=== PATIENT | male | born 1935 | race Caucasian/White ===

== ENCOUNTER 2020-01-30 13:55 | IRF | payer MEDICARE, OTHER, SELFPAY ==
--- NOTE | ~2020-01-30 | US_ITS ---
EXAMINATION: US venous doppler LE RT DATE: 02/09/2020 16:40 INDICATION: Right lower limb swelling TECHNIQUE: Bui scale images without and with compression and Doppler images of the right lower extre mity veins were obtained. COMPARISON: None FINDINGS: The right common femoral vein, profunda femoral vein, femoral vein, popliteal vein, peronea l trunk, posterior tibial veins, and greater saphenous vein are patent. IMPRESSION: 1. Patent right lower extremity veins. No evidence of deep venous thrombosis. Reviewed, dictated and finalized at location B.
[2020-01-30 13:48] VITALS: BP 122/40; PULSE 67; RESP 18; TEMP 36.6; O2SAT 98; BMI 23.9
--- NOTE | 2020-01-30 14:27 | ADMGEN ---
This patient, Brian Cook, was admitted to [facility] Room 226-01. Patient/family oriented to hospital policies and general routines including ID bracelet, bed and alarms, visiting hours, pain management, procedures, bathroom and other care routines, personal items, smoking policy, room service/diet, and visiting hours. Valuables list has been completed. Information on how to activate the Rapid Response Team has been discussed. Patient/Family are encouraged to report perceived risks to care and to ask questions if they do not understand what they are told or what they should do.
[2020-01-30] MEDS: DOCUSATE SODIUM 100 MG CAPSULE PO (20:12)
[2020-01-30 20:55] VITALS: TEMP 38.3
[2020-01-30] MEDS: ACETAMINOPHEN 325 MG TABLET 650 MG PO (20:55)
[2020-01-30 20:59] VITALS: TEMP 38.3
[2020-01-30 22:00] VITALS: BP 132/52; PULSE 80; RESP 18; TEMP 37.6; O2SAT 97
[2020-01-30 22:10] VITALS: TEMP 37.6
[2020-01-31 05:02] VITALS: TEMP 36.6
[2020-01-31 05:43] LABS: Basophils Percent Auto 0.5 % (0.2-1.2); Eosinophils Absolute Auto 0.3 K/mm3 (0-0.3); Hemoglobin 8.5 g/dL (14.0-18.0); Immature Granulocyte Absolute 0.05 K/mm3 (0.00-0.031); Immature Granulocyte Percent A 0.8 % (0-0.5); Lymphocytes Absolute Auto 0.72 K/mm3 (0.9-3.2); Lymphocytes Percent Auto 11.7 % (18.3-44.2); Mean Corpuscular HGB Conc 32.7 g/dl (32-36); Mean Corpuscular Hemoglobin 29.8 pg (26-34); Mean Corpuscular Volume 91.2 fl (80-100); Mean Platelet Volume 9.3 fl (7.4-10.4); Monocytes Absolute Auto 0.6 K/mm3 (0.1-0.6); Monocytes Percent Auto 9.5 % (2.6-8.5); Neutrophils Absolute Auto 4.5 K/mm3 (1.3-6.7); Neutrophils Percent Auto 73.5 % (45.5-73.1); Platelet Count Result 194 k/mm3 (150-375); Red Blood Count 2.85 M/mm3 (4.6-6.20); Red Cell Distribution Width 13.6 % (11.5-14.5); White Blood Count 6.2 K/mm3 (4.5-10.0)
[2020-01-31 05:55] LABS: Blood Urea Nitrogen 21 mg/dL (9-20); Calcium 7.9 mg/dL (8.4-10.2); Carbon Dioxide 30 mmol/L (22-30); Chloride 101 mmol/L (98-107); Estimated CRCL calculation 47 ml/min; Estimated Glomerular Filt Rate > 60; Glucose 103 mg/dL (75-110); Sodium 134 mmol/L (137-145)
[2020-01-31 06:00] VITALS: BP 114/51; PULSE 61; RESP 20; TEMP 36.6; O2SAT 97
[2020-01-31 08:00] VITALS: PULSE 61; RESP 20; O2SAT 97
[2020-01-31] MEDS: DOCUSATE SODIUM 100 MG CAPSULE PO ×2 (08:58→20:13)
[2020-01-31 14:00] VITALS: BP 129/58; PULSE 63; RESP 22; TEMP 36.8; O2SAT 100
--- NOTE | 2020-01-31 15:48 | REHAB_ITS ---
DATE OF SERVICE: 01/31/2020 The patient has been admitted to [facility] floor on 01/30/2020, and was seen by me on 01/31/2020 at 12 noon [id number]. PATIENT'S PRIMARY REHAB IMPAIRMENT CATEGORY: Orthopedic that is lower extremity fracture and the etiological diagnosis is right mild, moderately displaced basicervical femoral fracture. ADMISSION ACUTE COMORBID CONDITIONS: 1. Hypercholesterolemia. 2. Diverticulitis. 3. Prostatic cancer. HISTORY OF PRESENT ILLNESS: This 84-year-old right-handed male with no specific significant past medical history, except as mentioned above, presented to [facility] on 01/26/2020, subsequent to a fall in his daughter's basement. He reported significant right-sided hip pain with an unnatural rotation. In the emergency room, his blood pressure was 175/74. Radiological investigation documented angulated right femur neck fracture. Orthopedics were consulted and he underwent right hemiarthroplasty on 01/27/2020, with Dr. Lopez. He was weightbearing at touch toe to the right lower extremity along with hip precautions. Postoperatively, he was experiencing acute pain, acute blood-loss anemia, and impaired mobility to perform functional transfers, ADLs, and ambulation. His pain was being controlled with oral analgesics. He was hemodynamically stable and was working with Physical and Occupational Therapy and was finally discharged to rehab on Lovenox for DVT prophylaxis. As per the information available, he has not traveled outside the [place], had no contact with someone who was ill or had traveled outside the [place] in the last 21 days. The patient has traveled to an area of the that is experiencing known transmission of coronavirus. He was returned to go to [place], [place] from [place], was tested for COVID-19 and the tests were negative. He does not have fever. He is not experiencing any lower respiratory illness symptoms. Therapy was initiated at the acute care facility and he was transferred to us from [facility] on 01/30/2020. The patient has had major surgery in the last 100 days prior to admission, has had a fall in the past year and has had a fall with injury in the last year as well. PAST MEDICAL HISTORY: Hypercholesterolemia, prostatic cancer, and diverticulitis as mentioned above. PAST SURGICAL HISTORY: Sigmoidectomy, revision colostomy takedown. SOCIAL HISTORY: He is . Former smoker, quitting on 01/26/1960. Alcohol weekly, 6 packs per week. Lives with his in a one-level home in [place], [place] with a level entrance and his travels back and forth from [place] to [place] with seasons. The patient is able to stay with his daughter in [place] following rehab if necessary. Daughter lives in a split-level home with 6 steps down to get to the living areas and bathroom. He was completely independent and active prior to this particular fall with no assistive device and he has assistance available following the rehab if necessary. He could go home to [place] following rehab if he is able to tolerate the car ride. FAMILY HISTORY: History of father having the colon cancer. PRIOR LEVEL OF FUNCTION: He was independent in eating, oral care, toileting and hygiene, bathing and showering, upper body dressing, lower body dressing, footwear, rolling left and right, sit to lying, lying to sit, sit to stand, bed to chair transfer, toilet transfer, was ambulating independently and was able to complete stairs independently. CURRENT LEVEL OF FUNCTION: He is independent in eating, but requires supervision or touching assistance for oral care, requires substantial maximal assistance for toileting hygiene, showering and bathing, requires supervision or touching assistance for upper body, ma
[2020-01-31 18:58] VITALS: TEMP 36.8
[2020-01-31 22:00] VITALS: BP 120/55; PULSE 68; RESP 18; TEMP 37.1; O2SAT 96
[2020-02-01 05:54] VITALS: BP 125/47; PULSE 62; RESP 18; TEMP 36.8; O2SAT 97
[2020-02-01] MEDS: ACETAMINOPHEN 325 MG TABLET 650 MG PO (08:51)
[2020-02-01] MEDS: DOCUSATE SODIUM 100 MG CAPSULE PO ×2 (08:51→20:24)
[2020-02-01] MEDS: DIPHENHYDRAMINE 1%/ZINC 0.1% CREAM 30 GM TUBE 1 APPLIC TOPICAL (10:44)
[2020-02-01 14:00] VITALS: BP 123/54; PULSE 68; RESP 18; TEMP 36.6; O2SAT 98
--- NOTE | 2020-02-01 14:06 | WPDNEURORHBP ---
Subjective Date/time seen: right femur [id number]/19/20 14:06 Functional Status Ambulation Ability Ability to Ambulate 10 Feet: Contact Guard Ability to Ambulate 50 Feet With 2 Turns: Contact Guard Ability to Ambulate 150 Feet: Contact Guard Ambulation Assistive Devices: Walker, Wheeled Transfers Ability Ability to Transfer In/Out of Chair: Contact Guard Exam Const: General: cooperative, comfortable and no acute distress Nutritional Appearance: average body habitus Orientation/consciousness: patient oriented x3 Limitations: no limitations HENMT: Head: normal to inspection Mouth: Yes Normal oral and palatal mucosa present, Yes tongue normal and Yes oropharynx normal Eyes: General: appearance normal, both eyes and all related structures Neck: Neck: full ROM Resp: Effort & Inspection: normal respiratory effort Cardio: Rate: regular rate Rhythm: regular rhythm GI: Auscultation: normal bowel sounds Skin: General skin exam: no rashes or lesions noted Neuro: General: patient oriented x3 Cranial nerves: Yes CN's II-XII intact bilaterally Cognition (Neuro): normal cognition Speech: normal speech Motor exam (neuro): Abnormal motor strength present Sensory Exam: normal sensation Extrem: General: normal to inspection Psych: Appearance: grossly normal Objective Data Vital Signs Vital Signs: Vital Signs - 24 hr 01/31/20 18:58 01/31/20 22:00 02/01/20 05:54 Temperature 36.8 C 37.1 C 36.8 C Pulse Rate 68 62 Respiratory Rate 18 18 Blood Pressure 120/55 L 125/47 L Pulse Oximetry 96 97 Intake/Output Intake/Output: Intake & Output 01/29/20 01/30/20 01/31/20 02/01/20 23:59 23:59 23:59 23:59 Intake Total 680 240 Balance 680 240 Meds/Results Medications: Active Medications Generic Name Dose Route Start Last Admin Trade Name Freq PRN Reason Stop Dose Admin Acetaminophen 650 mg 01/30/20 14:36 02/01/20 08:51 Tylenol Tablet PO 650 mg Q4H PRN Administration Pain (Scale Score 1-3) Hydrocodone Bitart/Acetaminophen 1 tab 01/30/20 14:36 02/01/20 10:43 [place] 5-325 Mg PO 1 tab Q6H PRN Administration Pain (Scale Score 4-6) Hydrocodone Bitart/Acetaminophen 2 tab 01/30/20 14:36 [place] 5-325 Mg PO Q6H PRN Pain (Scale Score 7-10) Docusate Sodium 100 mg 01/30/20 21:00 02/01/20 08:51 Colace Capsule PO 100 mg Q12H HUANG Administration Zinc Acetate/Diphenhydramine 1 applic 02/01/20 10:13 02/01/20 10:44 Benadryl 1% Cream TOPICAL 1 applic QID PRN Administration Itching Progress Note: A&P Assessment and Plan (1) Right femoral fracture: Code(s): S72.91XA - Unspecified fracture of right femur, initial encounter for closed fracture Status: Acute Additional Plan continue with treatment
[2020-02-01 22:00] VITALS: BP 140/53; PULSE 68; RESP 19; TEMP 36.9; O2SAT 97
[2020-02-02 06:00] VITALS: BP 152/62; PULSE 63; RESP 17; TEMP 36; O2SAT 97
[2020-02-02 08:00] VITALS: PULSE 63; RESP 17; O2SAT 97
[2020-02-02] MEDS: DOCUSATE SODIUM 100 MG CAPSULE PO ×2 (08:40→20:18)
[2020-02-02 09:40] VITALS: TEMP 36
--- NOTE | 2020-02-02 10:49 | RPD ---
INDIVIDUALIZED PLAN OF CARE FOR Brian Cook Brief Synthesis of Pre-Admission Screen, Post-Admission Evaluation and Therapy Evaluations: The patient presents to rehab with a right mild-moderately displaced basicervical femoral fracture s/p right hemiarthroplasty. Comorbidities include acute postoperative pain, acute blood loss anemia, hypercholesterolemia, diverticulitis, and hypertension. The patient?s needs will be best met in an intensive program vs. at a lower level of care. The patient requires physician services for medical oversight, management of postop complications in setting of present comorbidities, and pain management. The patient requires nursing services for DVT prophylactics, infection protection, medication management and education, pressure relief, and wound care. Deficits include:ADLs, Balance, Endurance, Family Training/Education, Mobility, Pain Management, ROM, Safety, Strength, DOTTIE Precaution, and Transfers. Director Student Union/Case Management for: Discharge Planning and Patient/Family Counseling Physical Therapy: 5 days per week for 90 minutes. Treatments may include: Therapeutic Exercise, Gait Training, Neuromuscular Re-education, Transfer Training, Community Reintegration, Bed Mobility, Patient/Family Education, Wheelchair Mobility Group Therapy/Concurrent Therapy Rationales: -Improve attention span during functional activities in a distracted environment. -Enhance problem solving and/or adequate judgment skills during functional activities in a distracted environment. -Promote increased safety awareness in a distracted environment to reduce fall risk with functional tasks, transfers, and ambulation to allow a more safe, self-sufficient return to the home environment. -Improve dynamic balance skills to promote safety and independence with functional activities in a distracted environment for maximum gain. Occupational Therapy: 5 days per week for 90 minutes. Treatments may include: Therapeutic Exercise, Therapeutic Activity, Cognitive Training, Self-Care Transfer Training, Community Reintegration, Home Management, Patient/Family Education, Wheelchair Mobility Training, Energy Conservation Training Group Therapy/Concurrent Therapy Rationales: -Allow therapist to observe and teach generalization and carry-over of skills learned in individual therapy. -Enhance problem solving and sequencing skills during therapeutic activities in a distracted environment. -Promote increased safety awareness in a realistic setting to reduce fall risk with functional tasks due to visual and verbal distractions. -Increase functional level with ADLs, ADL transfers and use of adaptive equipment through therapeutic activities with others while promoting safety to allow a more safe, self-sufficient return home. Medical Prognosis: Good Anticipated Length of Stay: 10 days Rehab Goals: Eating Goal: 06-Independent Oral Hygiene Goal: 06-Independent Toileting Hygiene Goal: 05-Setup or Clean Up Assistance Shower/Bathe Self Goal: 04-Supervision or Touching Assistance Upper Body Dressing Goal: 06-Independent Lower Body Dressing Goal: 04-Supervision or Touching Assistance Putting On/Taking Off Footwear Goal: 04-Supervision or Touching Assistance Rolling Left and Right Goal: 06-Independent Sit to Lying Goal: 06-Independent Lying to Sitting on Side of Bed Goal: 06-Independent Sit to Stand Goal: 06-Independent Chair/[id number] Transfer Goal: 06-Independent Toilet Transfer Goal: 06-Independent Car Transfer Goal: 06-Independent Walk 10' Goal: 06-Independent Walk 50' with Two Turns Goal: 06-Independent Walk 150' Goal: 06-Independent Walk 10' on Uneven Surface Goal: 06-Independent 1 Step (Curb) Goal: 06-Independent 4 Steps Goal: 06-Independent 12 Steps Goal Score: 06-Independent Picking Up Object Goal: 06-Independent Wheel 50' with Two Turns Score: 09-Not Applicable Wheel 150' Goal: 09-Not Applicable Anticipated discharge destination: Home
[2020-02-02 13:46] VITALS: BMI 23.9
[2020-02-02 14:00] VITALS: BP 133/50; PULSE 72; RESP 16; TEMP 36.7; O2SAT 99
--- NOTE | 2020-02-02 14:26 | PCNSR ---
On 02/02/20, the student, Ko Miller, provided care and completed [facility]. I have reviewed the student's documentation and agree with the findings.
--- NOTE | 2020-02-02 14:58 | PCPTNOTE ---
Brian Pickering Johnshayne was evaluated for a wheeled walker on 02/02/2020 by this physical therapist. The wheeled walker will resolve patient's mobility limitations and will be used for ADL's within the home. The patient can safely use the wheeled walker. ?The wheeled walker will resolve the patient?s mobility deficits, including transfers/gait and ADL's. Emmanuelle Pastrana PT
[2020-02-02 15:12] VITALS: TEMP 36.7
[2020-02-02 22:00] VITALS: BP 130/53; PULSE 66; RESP 18; TEMP 36.9; O2SAT 100
[2020-02-03 06:00] VITALS: BP 134/58; PULSE 60; RESP 16; TEMP 36.7; O2SAT 96
[2020-02-03 08:00] VITALS: PULSE 60; RESP 16; O2SAT 96
[2020-02-03] MEDS: DOCUSATE SODIUM 100 MG CAPSULE PO (08:23)
[2020-02-03 14:00] VITALS: BP 127/54; PULSE 84; RESP 20; TEMP 36.6; O2SAT 99
--- NOTE | 2020-02-03 14:47 | WPDNEURORHBP ---
Subjective Date/time seen: 02/03/20 14:47 Interval history: this 84-year-old is here because of right hip fracture is doing fairly well denies any headache nausea vomiting chest pain shortness of breath fever chills sore throat Review of Systems Review of Systems: All systems reviewed & are unremarkable except as noted in HPI and below Functional Status Ambulation Ability Ability to Ambulate 10 Feet: Standby Assistance Ability to Ambulate 50 Feet With 2 Turns: Standby Assistance Ability to Ambulate 150 Feet: Standby Assistance Ambulation Assistive Devices: Walker, Wheeled Transfers Ability Ability to Transfer In/Out of Chair: Standby Assistance Exam Const: General: comfortable and no acute distress HENMT: General nose exam: Normal nares present Mouth: Yes moist mucous membranes Eyes: General: appearance normal, both eyes and all related structures Neck: Neck: supple and no JVD Resp: Effort & Inspection: normal respiratory effort Auscultation: clear to auscultation bilaterally Cardio: Rate: regular rate Rhythm: regular rhythm GI: GI Palp: Yes Soft to palpation Auscultation: normal bowel sounds Skin: General skin exam: normal color and no rashes or lesions noted Neuro: Other: the patient is awake and alert follows all commands doing well and progressing in the rehab on the still needing some assistance in the activities of daily living Extrem: General: normal to inspection Other: incision is clean and healthy Psych: Mental Status: mental status grossly normal Objective Data Vital Signs Vital Signs: Vital Signs - 24 hr 02/02/20 15:12 02/02/20 22:00 02/03/20 06:00 Temperature 36.7 C 36.9 C 36.7 C Pulse Rate 66 60 Respiratory Rate 18 16 Blood Pressure 130/53 L 134/58 L Pulse Oximetry 100 96 02/03/20 08:00 02/03/20 14:00 Temperature 36.6 C Pulse Rate 60 84 Respiratory Rate 16 20 Blood Pressure 127/54 L Pulse Oximetry 96 99 Intake/Output Intake/Output: Intake & Output 01/31/20 02/01/20 02/02/20 02/03/20 23:59 23:59 23:59 23:59 Intake Total 680 840 420 840 Balance 680 840 420 840 Meds/Results Medications: Active Medications Generic Name Dose Route Start Last Admin Trade Name Freq PRN Reason Stop Dose Admin Acetaminophen 650 mg 01/30/20 14:36 02/01/20 08:51 Tylenol Tablet PO 650 mg Q4H PRN Administration Pain (Scale Score 1-3) Hydrocodone Bitart/Acetaminophen 1 tab 01/30/20 14:36 02/03/20 13:25 [place] 5-325 Mg PO 1 tab Q6H PRN Administration Pain (Scale Score 4-6) Hydrocodone Bitart/Acetaminophen 2 tab 01/30/20 14:36 [place] 5-325 Mg PO Q6H PRN Pain (Scale Score 7-10) Docusate Sodium 100 mg 01/30/20 21:00 02/03/20 08:23 Colace Capsule PO 100 mg Q12H HUANG Administration Zinc Acetate/Diphenhydramine 1 applic 02/01/20 10:13 02/01/20 10:44 Benadryl 1% Cream TOPICAL 1 applic QID PRN Administration Itching Progress Note: A&P Assessment and Plan (1) Right femoral fracture: Code(s): S72.91XA - Unspecified fracture of right femur, initial encounter for closed fracture Status: Acute (2) S/P hip hemiarthroplasty: Code(s): Z96.649 - Presence of unspecified artificial hip joint Status: Acute Additional Plan discussed the team conference continue present medical management PT OT and gait training discharge planning for February 10, 2020
[2020-02-03 22:00] VITALS: BP 121/53; PULSE 72; RESP 20; TEMP 37.1; O2SAT 96
[2020-02-04 05:57] VITALS: BP 132/53; PULSE 58; RESP 20; TEMP 36.4; O2SAT 96
[2020-02-04 14:00] VITALS: BP 133/62; PULSE 81; RESP 18; TEMP 36.3; O2SAT 90
--- NOTE | 2020-02-04 14:49 | WPDNEURORHBP ---
Subjective Date/time seen: 02/04/20 14:49 Interval history: this 84-year-old Diederich is here after having had surgery for the right hip fracture is doing fairly well denies any headache nausea vomiting chest pain or shortness of breath he does have the pain from the site of the surgery but is not extraordinary however it is due to the therapy but if the pain increases we may have to repeat some x-rays Patient overall is making progress Review of Systems Review of Systems: All systems reviewed & are unremarkable except as noted in HPI and below Functional Status Ambulation Ability Ability to Ambulate 10 Feet: Standby Assistance Ability to Ambulate 50 Feet With 2 Turns: Standby Assistance Ability to Ambulate 150 Feet: Standby Assistance Ambulation Assistive Devices: Walker, Wheeled Transfers Ability Ability to Transfer In/Out of Chair: Standby Assistance Exam Const: General: comfortable and no acute distress HENMT: General nose exam: Normal nares present Mouth: Yes moist mucous membranes Eyes: General: appearance normal, both eyes and all related structures Neck: Neck: supple and no JVD Resp: Effort & Inspection: normal respiratory effort Auscultation: clear to auscultation bilaterally Cardio: Rate: regular rate Rhythm: regular rhythm GI: GI Palp: Yes Soft to palpation Auscultation: normal bowel sounds Skin: General skin exam: normal color and no rashes or lesions noted Neuro: Other: patient is awake alert well oriented making progress does not seem to be in any distress but over weakness is related to the the surgery he has had still needing assistance in the most of the activities of daily living Extrem: General: normal to inspection Other: incision is clean Psych: Mental Status: mental status grossly normal Objective Data Vital Signs Vital Signs: Vital Signs - 24 hr 02/03/20 22:00 02/04/20 05:57 02/04/20 14:00 Temperature 37.1 C 36.4 C 36.3 C L Pulse Rate 72 58 L 81 Respiratory Rate 20 20 18 Blood Pressure 121/53 L 132/53 L 133/62 Pulse Oximetry 96 96 90 Intake/Output Intake/Output: Intake & Output 02/01/20 02/02/20 02/03/20 02/04/20 23:59 23:59 23:59 23:59 Intake Total 026 841 2645 720 Balance 410 219 3949 720 Meds/Results Medications: Active Medications Generic Name Dose Route Start Last Admin Trade Name Freq PRN Reason Stop Dose Admin Acetaminophen 650 mg 01/30/20 14:36 02/01/20 08:51 Tylenol Tablet PO 650 mg Q4H PRN Administration Pain (Scale Score 1-3) Hydrocodone Bitart/Acetaminophen 1 tab 01/30/20 14:36 02/03/20 13:25 [place] 5-325 Mg PO 1 tab Q6H PRN Administration Pain (Scale Score 4-6) Hydrocodone Bitart/Acetaminophen 2 tab 01/30/20 14:36 02/04/20 10:03 [place] 5-325 Mg PO 2 tab Q6H PRN Administration Pain (Scale Score 7-10) Docusate Sodium 100 mg 01/30/20 21:00 02/04/20 10:03 Colace Capsule PO Not Given Q12H HUANG Zinc Acetate/Diphenhydramine 1 applic 02/01/20 10:13 02/01/20 10:44 Benadryl 1% Cream TOPICAL 1 applic QID PRN Administration Itching Progress Note: A&P Assessment and Plan (1) S/P hip hemiarthroplasty: Code(s): Z96.649 - Presence of unspecified artificial hip joint Status: Acute (2) Right femoral fracture: Code(s): S72.91XA - Unspecified fracture of right femur, initial encounter for closed fracture Status: Acute Additional Plan continue medical management PT OT and gait training
[2020-02-04 22:00] VITALS: BP 140/54; PULSE 72; RESP 18; TEMP 36.2; O2SAT 91
[2020-02-05 06:00] VITALS: BP 133/53; PULSE 65; RESP 18; TEMP 35.1; O2SAT 93
[2020-02-05 14:00] VITALS: BP 122/50; PULSE 84; RESP 18; TEMP 36.8; O2SAT 98
[2020-02-05] MEDS: ACETAMINOPHEN 325 MG TABLET 650 MG PO (20:38)
[2020-02-05 22:00] VITALS: BP 140/55; PULSE 75; RESP 18; TEMP 35.4; O2SAT 90
[2020-02-06 06:00] VITALS: BP 130/54; PULSE 65; RESP 18; TEMP 35.2; O2SAT 93
[2020-02-06] MEDS: ACETAMINOPHEN 325 MG TABLET 650 MG PO (09:07)
--- NOTE | 2020-02-06 12:39 | WPDNEURORHBP ---
Subjective Date/time seen: 02/06/20 12:39 Interval history: this 84-year-old is here post surgery for the right hip fracture is doing fairly well denies any headache nausea vomiting chest pain shortness of breath fever chills sore throat Review of Systems Review of Systems: All systems reviewed & are unremarkable except as noted in HPI and below Functional Status Ambulation Ability Ability to Ambulate 10 Feet: Independent Ability to Ambulate 50 Feet With 2 Turns: Independent Ability to Ambulate 150 Feet: Independent Ambulation Assistive Devices: Walker, Wheeled Transfers Ability Ability to Transfer In/Out of Chair: Independent Exam Const: General: comfortable and no acute distress HENMT: General nose exam: Normal nares present Mouth: Yes moist mucous membranes Eyes: General: appearance normal, both eyes and all related structures Neck: Neck: supple and no JVD Resp: Effort & Inspection: normal respiratory effort Auscultation: clear to auscultation bilaterally Cardio: Rate: regular rate Rhythm: regular rhythm GI: GI Palp: Yes Soft to palpation Auscultation: normal bowel sounds Skin: General skin exam: normal color and no rashes or lesions noted Neuro: Other: patient is awake alert will oriented to time place and person has normal speech and language function overall endurance and the ability to do the activities of daily living is Extrem: Other: the patient is doing fairly well we will continue the present medical PT OT gait training The patient incision from hip surgeries clean Psych: Mental Status: mental status grossly normal Objective Data Vital Signs Vital Signs: Vital Signs - 24 hr 02/05/20 14:00 02/05/20 22:00 02/06/20 06:00 Temperature 36.8 C 35.4 C L 35.2 C L Pulse Rate 84 75 65 Respiratory Rate 18 18 18 Blood Pressure 122/50 L 140/55 L 130/54 L Pulse Oximetry 98 90 93 Intake/Output Intake/Output: Intake & Output 02/03/20 02/04/20 02/05/20 02/06/20 23:59 23:59 23:59 23:59 Intake Total 1320 1080 960 360 Balance 1320 1080 960 360 Meds/Results Medications: Active Medications Generic Name Dose Route Start Last Admin Trade Name Freq PRN Reason Stop Dose Admin Acetaminophen 650 mg 01/30/20 14:36 02/06/20 09:07 Tylenol Tablet PO 650 mg Q4H PRN Administration Pain (Scale Score 1-3) Hydrocodone Bitart/Acetaminophen 1 tab 01/30/20 14:36 02/05/20 09:13 [place] 5-325 Mg PO 1 tab Q6H PRN Administration Pain (Scale Score 4-6) Hydrocodone Bitart/Acetaminophen 2 tab 01/30/20 14:36 02/04/20 10:03 [place] 5-325 Mg PO 2 tab Q6H PRN Administration Pain (Scale Score 7-10) Docusate Sodium 100 mg 02/04/20 22:30 Colace Capsule PO Q12H PRN Constipation Zinc Acetate/Diphenhydramine 1 applic 02/01/20 10:13 02/01/20 10:44 Benadryl 1% Cream TOPICAL 1 applic QID PRN Administration Itching Progress Note: A&P Assessment and Plan (1) S/P hip hemiarthroplasty: Code(s): Z96.649 - Presence of unspecified artificial hip joint Status: Acute (2) Right femoral fracture: Code(s): S72.91XA - Unspecified fracture of right femur, initial encounter for closed fracture Status: Acute Additional Plan we will continue the present pain management medical management PT OT and gait training
--- NOTE | 2020-02-06 13:25 | PCDIET ---
Nutrition Follow-Up Complete: No nutrition diagnosis at this time. Nutrition Goal: Patient to consume 75% or more of meals. Goal met. Patient consuming 75-100% of most meals on regular diet which is appropriate. Last recorded weight is 71.5 kg. Recommend obtaining new weight. Bowel Motility: +BM today. Labs Reviewed: No new labs. Meds Noted: Bess Watson Additional Notes: Right hip incision. No documented pressure sores. Will continue to monitor with same goal. Nutrition Monitoring and Evaluation: Follow up in 7 days.
[2020-02-06 14:00] VITALS: BP 112/51; PULSE 80; RESP 20; TEMP 36.2; O2SAT 96
[2020-02-06 22:00] VITALS: BP 156/58; PULSE 64; RESP 20; TEMP 36.9; O2SAT 93
[2020-02-07 05:04] LABS: Basophils Absolute Auto 0.1 K/mm3 (0.0-0.1); Basophils Percent Auto 0.5 % (0.2-1.2); Eosinophils Absolute Auto 0.2 K/mm3 (0-0.3); Eosinophils Percent Auto 2.5 % (0-4.4); Hematocrit 29.4 % (42.0-52.0); Hemoglobin 9.5 g/dL (14.0-18.0); Immature Granulocyte Absolute 0.27 K/mm3 (0.00-0.031); Immature Granulocyte Percent A 2.8 % (0-0.5); Lymphocytes Absolute Auto 0.98 K/mm3 (0.9-3.2); Lymphocytes Percent Auto 10.3 % (18.3-44.2); Mean Corpuscular HGB Conc 32.3 g/dl (32-36); Mean Corpuscular Hemoglobin 29.5 pg (26-34); Mean Corpuscular Volume 91.3 fl (80-100); Mean Platelet Volume 8.7 fl (7.4-10.4); Monocytes Absolute Auto 0.6 K/mm3 (0.1-0.6); Monocytes Percent Auto 6.7 % (2.6-8.5); Neutrophils Absolute Auto 7.3 K/mm3 (1.3-6.7); Neutrophils Percent Auto 77.2 % (45.5-73.1); Platelet Count Result 311 k/mm3 (150-375); Red Blood Count 3.22 M/mm3 (4.6-6.20); Red Cell Distribution Width 14.8 % (11.5-14.5); White Blood Count 9.5 K/mm3 (4.5-10.0)
[2020-02-07 05:11] LABS: Anion Gap 9.1 mmol/L (7-16); Blood Urea Nitrogen 19 mg/dL (9-20); Calcium 8.2 mg/dL (8.4-10.2); Carbon Dioxide 26 mmol/L (22-30); Chloride 104 mmol/L (98-107); Estimated CRCL calculation 52 ml/min; Estimated Glomerular Filt Rate > 60; Glucose 104 mg/dL (75-110); Potassium 4.1 mmol/L (3.4-5.0); Sodium 135 mmol/L (137-145)
[2020-02-07 05:44] VITALS: BP 144/59; PULSE 64; RESP 18; TEMP 36.6; O2SAT 91
[2020-02-07 14:00] VITALS: BP 146/59; PULSE 81; RESP 19; TEMP 36.6; O2SAT 100
--- NOTE | 2020-02-07 16:55 | WPDNEURORHBP ---
Subjective Date/time seen: 02/07/20 16:55 Interval history: this 84 year low-dose here after having surgery for right hip fracture he is doing fairly well her pain is or his pain is better controlled denies any headache nausea vomiting chest pain shortness breath fever chills sore throat Review of Systems Review of Systems: All systems reviewed & are unremarkable except as noted in HPI and below Functional Status Ambulation Ability Ability to Ambulate 10 Feet: Independent Ability to Ambulate 50 Feet With 2 Turns: Independent Ability to Ambulate 150 Feet: Independent Ambulation Assistive Devices: Walker, Wheeled Transfers Ability Ability to Transfer In/Out of Chair: Independent Exam Const: General: comfortable and no acute distress HENMT: General nose exam: Normal nares present Mouth: Yes moist mucous membranes Eyes: General: appearance normal, both eyes and all related structures Neck: Neck: supple and no JVD Resp: Effort & Inspection: normal respiratory effort Auscultation: clear to auscultation bilaterally Cardio: Rate: regular rate Rhythm: regular rhythm GI: GI Palp: Yes Soft to palpation Auscultation: normal bowel sounds Skin: General skin exam: normal color and no rashes or lesions noted Neuro: Other: patient is awake alert and well-oriented with normal cranial examination and any weakness he has is related to the right hip fracture with the of course healing process the surgery Extrem: General: normal to inspection Other: incision is clean and healthy Psych: Mental Status: mental status grossly normal Objective Data Vital Signs Vital Signs: Vital Signs - 24 hr 02/07/20 22:00 02/08/20 06:00 02/08/20 08:00 Temperature 36.8 C 36.8 C Pulse Rate 72 68 70 Respiratory Rate 18 18 18 Blood Pressure 128/48 L 132/60 Pulse Oximetry 90 91 02/08/20 14:00 Temperature 36.6 C Pulse Rate 63 Respiratory Rate 18 Blood Pressure 121/73 Pulse Oximetry 95 Intake/Output Intake/Output: Intake & Output 02/05/20 02/06/20 02/07/20 02/08/20 23:59 23:59 23:59 23:59 Intake Total 960 600 720 480 Balance 960 600 720 480 Meds/Results Medications: Active Medications Generic Name Dose Route Start Last Admin Trade Name Freq PRN Reason Stop Dose Admin Acetaminophen 650 mg 01/30/20 14:36 07/24/20 09:07 Tylenol Tablet PO 650 mg Q4H PRN Administration Pain (Scale Score 1-3) Hydrocodone Bitart/Acetaminophen 1 tab 01/30/20 14:36 02/08/20 14:50 [place] 5-325 Mg PO 1 tab Q6H PRN Administration Pain (Scale Score 4-6) Hydrocodone Bitart/Acetaminophen 2 tab 01/30/20 14:36 02/04/20 10:03 [place] 5-325 Mg PO 2 tab Q6H PRN Administration Pain (Scale Score 7-10) Docusate Sodium 100 mg 02/04/20 22:30 Colace Capsule PO Q12H PRN Constipation Zinc Acetate/Diphenhydramine 1 applic 02/01/20 10:13 02/01/20 10:44 Benadryl 1% Cream TOPICAL 1 applic QID PRN Administration Itching Progress Note: A&P Assessment and Plan (1) S/P hip hemiarthroplasty: Code(s): Z96.649 - Presence of unspecified artificial hip joint Status: Acute (2) Right femoral fracture: Code(s): S72.91XA - Unspecified fracture of right femur, initial encounter for closed fracture Status: Acute Additional Plan continue pain management medical management PT OT and gait training
[2020-02-07 22:00] VITALS: BP 128/48; PULSE 72; RESP 18; TEMP 36.8; O2SAT 90
[2020-02-08 06:00] VITALS: BP 132/60; PULSE 68; RESP 18; TEMP 36.8; O2SAT 91
[2020-02-08 08:00] VITALS: PULSE 70; RESP 18
[2020-02-08 14:00] VITALS: BP 121/73; PULSE 63; RESP 18; TEMP 36.6; O2SAT 95
--- NOTE | 2020-02-08 18:45 | WPDNEURORHBP ---
Subjective Date/time seen: 02/08/20 18:45 Interval history: this pleasant 84 years old is here after having had surgery for the right hip fracture doing fairly well denies any headache nausea vomiting chest pain shortness of breath fever chills or sore throat Review of Systems Review of Systems: All systems reviewed & are unremarkable except as noted in HPI and below Functional Status Ambulation Ability Ability to Ambulate 10 Feet: Independent Ability to Ambulate 50 Feet With 2 Turns: Independent Ability to Ambulate 150 Feet: Independent Ambulation Assistive Devices: Walker, Wheeled Transfers Ability Ability to Transfer In/Out of Chair: Independent Exam Const: General: comfortable and no acute distress HENMT: General nose exam: Normal nares present Mouth: Yes moist mucous membranes Eyes: General: appearance normal, both eyes and all related structures Neck: Neck: supple and no JVD Resp: Effort & Inspection: normal respiratory effort Auscultation: clear to auscultation bilaterally Cardio: Rate: regular rate Rhythm: regular rhythm GI: GI Palp: Yes Soft to palpation Auscultation: normal bowel sounds Skin: General skin exam: normal color and no rashes or lesions noted Neuro: Other: patient is awake alert well oriented making progress as for as the hip fracture is concerned Extrem: General: normal to inspection Psych: Mental Status: mental status grossly normal Objective Data Vital Signs Vital Signs: Vital Signs - 24 hr 02/07/20 22:00 02/08/20 06:00 02/08/20 08:00 Temperature 36.8 C 36.8 C Pulse Rate 72 68 70 Respiratory Rate 18 18 18 Blood Pressure 128/48 L 132/60 Pulse Oximetry 90 91 02/08/20 14:00 Temperature 36.6 C Pulse Rate 63 Respiratory Rate 18 Blood Pressure 121/73 Pulse Oximetry 95 Intake/Output Intake/Output: Intake & Output 02/05/20 02/06/20 02/07/20 02/08/20 23:59 23:59 23:59 23:59 Intake Total 960 600 720 720 Balance 960 600 720 720 Meds/Results Medications: Active Medications Generic Name Dose Route Start Last Admin Trade Name Freq PRN Reason Stop Dose Admin Acetaminophen 650 mg 01/30/20 14:36 02/06/20 09:07 Tylenol Tablet PO 650 mg Q4H PRN Administration Pain (Scale Score 1-3) Hydrocodone Bitart/Acetaminophen 1 tab 01/30/20 14:36 02/08/20 14:50 [place] 5-325 Mg PO 1 tab Q6H PRN Administration Pain (Scale Score 4-6) Hydrocodone Bitart/Acetaminophen 2 tab 01/30/20 14:36 02/04/20 10:03 [place] 5-325 Mg PO 2 tab Q6H PRN Administration Pain (Scale Score 7-10) Docusate Sodium 100 mg 02/04/20 22:30 Colace Capsule PO Q12H PRN Constipation Zinc Acetate/Diphenhydramine 1 applic 02/01/20 10:13 02/01/20 10:44 Benadryl 1% Cream TOPICAL 1 applic QID PRN Administration Itching Progress Note: A&P Assessment and Plan (1) S/P hip hemiarthroplasty: Code(s): Z96.649 - Presence of unspecified artificial hip joint Status: Acute (2) Right femoral fracture: Code(s): S72.91XA - Unspecified fracture of right femur, initial encounter for closed fracture Status: Acute Additional Plan continue present medical management PT OT and gait training
[2020-02-08 21:25] VITALS: BP 128/59; PULSE 83; RESP 18; TEMP 36.4; O2SAT 97
[2020-02-09 05:50] VITALS: BP 152/50; PULSE 76; RESP 18; TEMP 36.6; O2SAT 100
[2020-02-09 14:00] VITALS: BP 127/53; PULSE 78; RESP 20; TEMP 36.4; O2SAT 96
[2020-02-09 22:00] VITALS: BP 122/52; PULSE 68; RESP 16; TEMP 36.7; O2SAT 94
[2020-02-10 06:00] VITALS: BP 138/59; PULSE 66; RESP 16; TEMP 36.7; O2SAT 94
--- NOTE | 2020-02-10 11:38 | WPDNEURORHBP ---
Subjective Date/time seen: 02/10/20 11:38 Interval history: this 84 year all old with right hip fracture on the surgery has finished his rehab done remarkably well, he has some swelling of the right lower extremity however the venous Doppler is negative he will feels a little tight in his right lower extremity the incision is clean not much drainage is noted he is afebrile denies any headache nausea vomiting chest pain shortness of breath fever chills sore throat Review of Systems Review of Systems: All systems reviewed & are unremarkable except as noted in HPI and below Functional Status Ambulation Ability Ability to Ambulate 10 Feet: Independent Ability to Ambulate 50 Feet With 2 Turns: Independent Ability to Ambulate 150 Feet: Independent Ambulation Assistive Devices: Walker, Wheeled Transfers Ability Ability to Transfer In/Out of Chair: Independent Exam Const: General: comfortable and no acute distress HENMT: General nose exam: Normal nares present Mouth: Yes moist mucous membranes Eyes: General: appearance normal, both eyes and all related structures Neck: Neck: supple and no JVD Resp: Effort & Inspection: normal respiratory effort Auscultation: clear to auscultation bilaterally Cardio: Rate: regular rate Rhythm: regular rhythm GI: GI Palp: Yes Soft to palpation Auscultation: normal bowel sounds Skin: General skin exam: normal color and no rashes or lesions noted Neuro: Other: patient remains awake and alert well oriented with normal speech and language functions normal cranial examination the strength and endurance has improved his walking quite a bit and doing fairly well and ready to be discharged Extrem: General: normal to inspection Other: right lower extremity little bit the swelling was negative calf tenderness no clinical or radiological evidence of DVT the incision is also clean Psych: Mental Status: mental status grossly normal Objective Data Vital Signs Vital Signs: Vital Signs - 24 hr 02/09/20 14:00 02/09/20 22:00 02/10/20 06:00 Temperature 36.4 C 36.7 C 36.7 C Pulse Rate 78 68 66 Respiratory Rate 20 16 16 Blood Pressure 127/53 L 122/52 L 138/59 L Pulse Oximetry 96 94 94 Intake/Output Intake/Output: Intake & Output 02/07/20 02/08/20 02/09/20 02/10/20 23:59 23:59 23:59 23:59 Intake Total 720 720 720 240 Balance 720 720 720 240 Meds/Results Medications: Active Medications Generic Name Dose Route Start Last Admin Trade Name Freq PRN Reason Stop Dose Admin Acetaminophen 650 mg 01/30/20 14:36 02/06/20 09:07 Tylenol Tablet PO 650 mg Q4H PRN Administration Pain (Scale Score 1-3) Hydrocodone Bitart/Acetaminophen 1 tab 01/30/20 14:36 02/10/20 09:04 [place] 5-325 Mg PO 1 tab Q6H PRN Administration Pain (Scale Score 4-6) Hydrocodone Bitart/Acetaminophen 2 tab 01/30/20 14:36 02/04/20 10:03 [place] 5-325 Mg PO 2 tab Q6H PRN Administration Pain (Scale Score 7-10) Docusate Sodium 100 mg 02/04/20 22:30 Colace Capsule PO Q12H PRN Constipation Zinc Acetate/Diphenhydramine 1 applic 02/01/20 10:13 02/01/20 10:44 Benadryl 1% Cream TOPICAL 1 applic QID PRN Administration Itching Radiology Results: ITS Impressions Venous Doppler Study 02/09/20 16:41 IMPRESSION: 1. Patent right lower extremity veins. No evidence of deep venous thrombosis. Progress Note: A&P Assessment and Plan (1) S/P hip hemiarthroplasty: Code(s): Z96.649 - Presence of unspecified artificial hip joint Status: Acute (2) Right femoral fracture: Code(s): S72.91XA - Unspecified fracture of right femur, initial encounter for closed fracture Status: Acute Additional Plan patient is going to be discharged today with a follow-up with his surgeon also primary care physician the case was discussed with his by the hospice care transitions coordinator initially he will be going to his daughter here and then he will
--- NOTE | 2020-02-13 09:33 | DS_ITS ---
DATE OF DISCHARGE: 02/10/2020 DISCHARGE REHAB DIAGNOSES: Orthopedic lower extremity fracture with etiological diagnosis of right mild to moderately displaced basicervical femur fracture. DISCHARGE ACTIVE COMORBID CONDITIONS: 1. Hypercholesterolemia. 2. Diverticulitis. 3. Prostatic cancer. REASON FOR ADMISSION: An 84 years old right-handed male, presented to [facility] on 01/26/2020, subsequent to fall in his daughter's basement with subsequent complaint of right-sided hip pain and also unnatural rotation. On initial evaluation in the emergency room, he was hypertensive. X-rays documented angulated right femur neck fracture. Orthopedics were consulted and he underwent right hemiarthroplasty on 01/27/2020, was postoperatively weightbearing touch toe to the right lower extremity along with the hip precautions. He complained of pain, became somewhat anemic because of blood loss, had impaired mobility to perform functional transfers, required the pain medication orally, but hemodynamically, he was stable. He had no history of any exposure to the COVID. LEVEL OF FUNCTION AT THE TIME OF ADMISSION: He was independent in eating; required supervision for oral hygiene, toileting; substantial assistance for bathing; setup for upper body dressing; substantial assistance for lower body dressing, footwear; supervision for rolling in bed, sit to lying, lying to sit; partial assistance for sit to stand, chair transfer, toilet transfer, car transfer; walking 10 feet. He was unable to walk 50 feet with 2 turns, 150 feet; partial assistance for walking 10 feet on uneven surfaces, curb or step, 4 steps, 12 steps; required supervision for picking up object. Wheelchair obviously was not applicable. Anticipated rehab goals at the time of admission were to make him independent eating and oral hygiene; require only setup for toileting; supervision for bathing; become independent, upper body dressing; require supervision for lower body dressing and footwear; become independent in rolling in bed, sit to lying, lying to sit, sit to stand, chair transfer, toilet transfer, car transfer, 10 feet walking, 50 feet walking with 2 turns, 150 feet walking, 10 feet walking on uneven surfaces, curb or step, 4 steps, 12 steps; and picking up object. Wheelchair was not applicable. LEVEL OF FUNCTION AT THE TIME OF DISCHARGE: The patient became independent in all the modalities except he required setup for the footwear. HOSPITAL COURSE: During the hospitalization, he was actively involved in the physical therapy and occupation therapy on a regular basis. No other physician was involved in his care other than Dr. Briseno. At the time of discharge, he was independently ambulating with 2 turns, 150 feet independent with a wheeled walker, and he was able to transfer in and out of chair independently. The general physical examination remained stable so were the vital signs. He was afebrile with temperature of 36.7, pulse 66, blood pressure 138/59, pulse ox 94 percent. DISCHARGE INSTRUCTIONS: At the time of discharge, he was instructed to not to drive, may shower, follow the diet as tolerated, and continue the medications as follows: Tylenol 650 mg q.4 hours p.r.n., docusate sodium 100 mg p.o. q.12 hours, hydrocodone with Tylenol 1 tab q.6 hours p.r.n. DISCHARGE DESTINATION: Home. FALLS AND INJURIES DURING THE HOSPITALIZATION: None. D I MT: Arpita
== END 2020-02-10 14:00 | disposition home or self-care (01) | DRG 560 ==
PROVIDERS: Admitting Provider Psychiatry & Neurology Neurology; Visit Provider Psychiatry & Neurology Neurology
DX: Z47.1 Aftercare following joint replacement surgery (principal); D62 Acute posthemorrhagic anemia; K57.92 Diverticulitis of intestine, part unspecified, without perforation or abscess without bleeding; S72.091D Other fracture of head and neck of right femur, subsequent encounter for closed fracture with routine healing; G89.18 Other acute postprocedural pain; E78.00 Pure hypercholesterolemia, unspecified; I10 Essential (primary) hypertension; R22.41 Localized swelling, mass and lump, right lower limb; Z85.46 Personal history of malignant neoplasm of prostate; Z87.891 Personal history of nicotine dependence; Z96.641 Presence of right artificial hip joint; W19.XXXD Unspecified fall, subsequent encounter
CPT/HCPCS: 36415; 80048; 85025; 93971; 97110; 97116; 97161; 97165; 97530; 97535; A9270